=== PATIENT | male | born 1950 | race Asian ===

== ENCOUNTER 2023-08-01 03:25 | Inpatient (IN) | payer MEDICARE ==
[~2023-08-01] VITALS: Ht 157.5 cm; Wt 69.7 kg
[2023-08-01] MEDS ORDERED: ALBUTEROL SULFATE 2.5 MG/0.5 ML 5 ML NEB SOLUTION NEB ONE ×2 (03:28→03:45)
[2023-08-01] MEDS ORDERED: IPRATROPIUM BROMIDE 0.5 MG/2.5 ML NEB SOLUTION NEB ONE ×2 (03:28→03:45)
[2023-08-01] MEDS ORDERED: 0.9% SODIUM CHLORIDE 15 ML NEB SOLUTION NEB ONE (03:30)
[2023-08-01] MEDS ORDERED: ALBUTEROL SULFATE 2.5 MG/0.5 ML NEB SOLUTION NEB ONE (03:32)
[2023-08-01 03:45] VITALS: PULSE 101; RESP 26; O2SAT 98
[2023-08-01] MEDS ORDERED: MethylPREDNISolone SOD SUCC 125 MG/2 ML VIAL IVP ONE (03:45)
[2023-08-01 03:50] VITALS: PULSE 101; RESP 26; O2SAT 98
[2023-08-01 04:10] LABS: ABG BASE EXCESS -1.2 mmol/L (-2.0-3.0); ABG CARBOXYHEMOGLOBIN 0.4 % (0.0-1.5); ABG HCO3 23.5 mmol/L (22.0-26.0); ABG METHEMOGLOBIN 0.3 % (0.0-1.5); ABG OXYGEN CONTENT 21.5 mL/dL (15.0-23.0); ABG OXYGEN SATURATION 98.9 % (95.0-98.0); ABG OXYHEMOGLOBIN 98.2 % (94.0-100.0); ABG PCO2 41 mmHg (35-45); ABG PH 7.387 (7.35-7.450); ABG TOTAL HEMOGLOBIN 15.4 G/dL (12.0-18.0); PO2, ARTERIAL BG 150.3 mmHg (75.0-83.0); SOURCE, BLOOD GAS ARTERIAL; TEMPERATURE, FAHRENHEIT, BG 97.6 FAHREN (96.0-98.6)
[2023-08-01 04:11] LABS: ALLEN TEST, BLOOD GAS POS; O2 DEVICE,BLOOD GAS AEROSOL (ROOM AIR); SITE, BLOOD GAS RT BRACHIAL
[2023-08-01 04:21] LABS: BASOPHILS % (AUTO) 0.6 % (0.0-2.0); EOSINOPHILS % (AUTO) 2.1 % (1.0-6.0); HEMATOCRIT 45.5 % (41-53); HEMOGLOBIN 14.9 g/dL (13.5-17.5); LYMPHOCYTES # (AUTO) 2.5 K/uL (1.0-4.8); LYMPHOCYTES % (AUTO) 21.5 % (22.0-44.0); MEAN CORPUSCULAR HGB CONC 32.7 G/dL (31.0-37.0); MEAN CORPUSCULAR VOLUME 92 fL (80-100); MONOCYTES % (AUTO) 8.8 % (2.0-9.0); NEUTROPHILS # (AUTO) 7.9 K/uL (1.8-7.7); PLATELET COUNT (AUTO) 115 K/uL (150-450); RED BLOOD CELL COUNT(AUTO) 4.96 MIL/uL (4.50-5.90); RED CELL DISTRIBUTION WIDTH 13.8 % (11.5-14.5); WHITE BLOOD COUNT (AUTO) 11.8 K/uL (4.5-11.0)
[2023-08-01 04:33] LABS: D-DIMER 0.19 mg/L FEU (0.00-0.50); INR 1.1 (0.9-1.1); PROTHROMBIN TIME 11.3 SEC (9.4-11.6)
[2023-08-01 04:35] LABS: LACTIC ACID 0.9 mmol/L (0.4-2.0); TROPONIN I-HIGH SENSITIVITY 9 ng/L (<76)
[2023-08-01 04:40] LABS: ANION GAP 6 mmol/L (8-16); CALCIUM, TOTAL 8.8 mg/dL (8.8-10.5); CARBON DIOXIDE 32 mmol/L (22-29); CHLORIDE 99 mmol/L (98-107); CREATININE 1.02 mg/dL (0.60-1.30); GLOMERULAR FILTR. RATE CALC > 60 mL/min (>60); GLUCOSE,RANDOM 125 mg/dL (70-110); POTASSIUM 3.9 mmol/L (3.5-5.1); SODIUM SERUM 137 mmol/L (136-145); UREA NITROGEN, BLOOD 10 mg/dL (7-18)
[2023-08-01 04:42] LABS: B-TYPE NATRIURETIC PEPTIDE 106 pg/mL (0-100)
[2023-08-01 04:47] LABS: ALANINE AMINOTRANSFERASE 24 U/L (12-78); ALBUMIN 3.9 g/dL (3.4-5.0); ALKALINE PHOSPHATASE 65 U/L (46-116); ASPARTATE AMINOTRANSFERASE 26 U/L (15-37); BILIRUBIN,TOTAL 0.9 mg/dL (0.1-1.0); CREATINE KINASE, TOTAL ONLY 157 U/L (39-308); TOTAL PROTEIN, SERUM 7.7 g/dL (6.4-8.2)
[2023-08-01 04:53] LABS: COVID AG,FIA SOURCE NASAL SWAB
[2023-08-01 04:59] VITALS: PULSE 112; RESP 18; O2SAT 100
[2023-08-01 05:14] LABS: INFLUENZA TYPE A NEGATIVE FOR TYPE A (NEGATIVE); INFLUENZA TYPE B NEGATIVE FOR TYPE B (NEGATIVE); SARS-COV2 (COVID) ANTIGEN,FIA Negative (Negative)
[2023-08-01] MEDS ORDERED: ACETAMINOPHEN 325 MG TABLET PO PRN ×2 (07:00→07:15)
[2023-08-01] MEDS ORDERED: ONDANSETRON HCL 4 MG/2 ML VIAL IVP PRN ×2 (07:00→07:15)
[2023-08-01] MEDS ORDERED: IPRATROPIUM BROMIDE 0.5 MG/2.5 ML NEB SOLUTION NEB PRN (07:15)
[2023-08-01] MEDS ORDERED: BISACODYL 10 MG RECTAL RECTAL SUPPOSITORY PR PRN (07:15)
[2023-08-01] MEDS ORDERED: DOCUSATE SODIUM 100 MG CAPSULE PO PRN (07:15)
[2023-08-01] MEDS ORDERED: ALBUTEROL SULFATE 2.5 MG/0.5 ML NEB SOLUTION NEB PRN (07:15)
[2023-08-01] MEDS ORDERED: 0.9% SODIUM CHLORIDE 10 ML SYRINGE IVP PRN (07:15)
[2023-08-01] MEDS ORDERED: HEPARIN SODIUM,PORCINE 5,000 UNITS/ML VIAL IVP PRN ×2 (07:45)
[2023-08-01 08:30] LABS: TROPONIN I-HIGH SENSITIVITY 9 ng/L (<76)
[2023-08-01 08:39] LABS: THYROID STIMULATING HORMONE 0.65 uIU/mL (0.36-3.74)
[2023-08-01] MEDS ORDERED: CARVEDILOL 3.125 MG TABLET PO SCH (09:00)
[2023-08-01] MEDS: HEPARIN SODIUM 25000 UNITS/D5W 250 ML IV PRN (09:01)
[2023-08-01] MEDS: ATORVASTATIN CALCIUM 40 MG TABLET PO SCH (11:01)
[2023-08-01] MEDS: LISINOPRIL 5 MG TABLET PO SCH (11:02)
[2023-08-01] MEDS: CARVEDILOL 3.125 MG TABLET PO SCH ×2 (11:02→21:24)
[2023-08-01 11:03] VITALS: BP 115/78; PULSE 114; RESP 20; TEMP 98.6
[2023-08-01] MEDS ORDERED: INFLUENZA VIRUS VACCINE QVS 2023-24 (6MO+)/PF 60 MCG/0.5 ML SYRINGE IM. ONE (14:15)
[2023-08-01 14:30] VITALS: BP 111/77; PULSE 107; RESP 20; TEMP 97.9
[2023-08-01 15:44] LABS: APPEARANCE,URINE CLEAR (CLEAR); BILIRUBIN,URINE NEGATIVE (NEGATIVE); COLOR,URINE LIGHT YELLOW (YELLOW); GLUCOSE, URINE (UA) >=1000 mg/dL (NEGATIVE); KETONES,URINE NEGATIVE (NEGATIVE); LEUKOCYTE ESTERASE ,URINE NEGATIVE (NEGATIVE); NITRATE,URINE NEGATIVE (NEGATIVE); OCCULT BLOOD,URINE TRACE (NEGATIVE); PH,URINE 6.5 (5.0-8.0); PROTEIN,URINE 30-70 mg/dL (NEGATIVE); SPECIFIC GRAVITIY, URINE 1.012 (1.003-1.030); UROBILINOGEN,URINE <=1.0 mg/dL (<=1.0)
[2023-08-01 15:58] LABS: BACTERIA,URINE None Seen /HPF (None Seen); RBC,URINE 0-2 /HPF (0-2); WBC,URINE 0-2 /HPF (0-5)
[2023-08-01 20:10] VITALS: BP 109/74; PULSE 122; RESP 20; TEMP 98.9
[2023-08-01] MEDS: BENZONATATE 100 MG CAPSULE PO SCH (21:24)
[2023-08-02 00:22] VITALS: BP 118/77; PULSE 88; RESP 20; TEMP 98.9
[2023-08-02 05:05] VITALS: BP 125/48; PULSE 78; RESP 20; TEMP 98
[2023-08-02] MEDS: LEVOTHYROXINE SODIUM 88 MCG TABLET PO SCH (06:30)
[2023-08-02 07:06] LABS: BASOPHILS % (AUTO) 0.3 % (0.0-2.0); EOSINOPHILS % (AUTO) 0.2 % (1.0-6.0); HEMATOCRIT 44.2 % (41-53); HEMOGLOBIN 14.7 g/dL (13.5-17.5); LYMPHOCYTES # (AUTO) 1.4 K/uL (1.0-4.8); LYMPHOCYTES % (AUTO) 10.6 % (22.0-44.0); MEAN CORPUSCULAR HEMOGLOBIN 30.3 pg (26.0-34.0); MEAN CORPUSCULAR HGB CONC 33.3 G/dL (31.0-37.0); MEAN CORPUSCULAR VOLUME 91 fL (80-100); MONOCYTES # (AUTO) 1.2 K/uL (0.1-1.0); MONOCYTES % (AUTO) 9.1 % (2.0-9.0); NEUTROPHILS # (AUTO) 10.3 K/uL (1.8-7.7); NEUTROPHILS % (AUTO) 79.8 % (40.0-70.0); PLATELET COUNT (AUTO) 133 K/uL (150-450); RED BLOOD CELL COUNT(AUTO) 4.85 MIL/uL (4.50-5.90); RED CELL DISTRIBUTION WIDTH 13.5 % (11.5-14.5); WHITE BLOOD COUNT (AUTO) 12.9 K/uL (4.5-11.0)
[2023-08-02 07:25] LABS: TROPONIN I-HIGH SENSITIVITY 11 ng/L (<76)
[2023-08-02 07:26] VITALS: BP 118/91; PULSE 87; RESP 18; TEMP 98.4
[2023-08-02 07:26] LABS: ALANINE AMINOTRANSFERASE 24 U/L (12-78); ALBUMIN 3.6 g/dL (3.4-5.0); ALKALINE PHOSPHATASE 59 U/L (46-116); ANION GAP 6 mmol/L (8-16); ASPARTATE AMINOTRANSFERASE 24 U/L (15-37); BILIRUBIN,TOTAL 0.8 mg/dL (0.1-1.0); CALCIUM, TOTAL 9.1 mg/dL (8.8-10.5); CARBON DIOXIDE 30 mmol/L (22-29); CHLORIDE 101 mmol/L (98-107); CREATININE 0.87 mg/dL (0.60-1.30); GLOMERULAR FILTR. RATE CALC > 60 mL/min (>60); GLUCOSE,RANDOM 107 mg/dL (70-110); SODIUM SERUM 137 mmol/L (136-145); TOTAL PROTEIN, SERUM 7.6 g/dL (6.4-8.2); UREA NITROGEN, BLOOD 15 mg/dL (7-18)
[2023-08-02] MEDS: LISINOPRIL 5 MG TABLET PO SCH (09:58)
[2023-08-02] MEDS: ATORVASTATIN CALCIUM 40 MG TABLET PO SCH (09:58)
[2023-08-02] MEDS: CARVEDILOL 3.125 MG TABLET PO SCH ×2 (09:58→20:57)
[2023-08-02] MEDS: BENZONATATE 100 MG CAPSULE PO SCH ×3 (09:58→20:58)
[2023-08-02 11:45] VITALS: BP 111/80; PULSE 91; RESP 18; TEMP 97.9
[2023-08-02] MEDS: HEPARIN SODIUM 25000 UNITS/D5W 250 ML IV PRN (15:28)
[2023-08-02 15:52] VITALS: BP 125/86; PULSE 87; RESP 18; TEMP 98.6
[2023-08-02 20:00] VITALS: BP 152/92; PULSE 98; RESP 17; TEMP 98
[2023-08-03] VITALS: BP 135/93; PULSE 96; RESP 19; TEMP 98.4
[2023-08-03 04:00] VITALS: BP 121/90; PULSE 80; RESP 19; TEMP 98.3
[2023-08-03] MEDS: LEVOTHYROXINE SODIUM 88 MCG TABLET PO SCH (05:36)
[2023-08-03 07:37] VITALS: BP 127/88; PULSE 68; RESP 18; TEMP 97.9
[2023-08-03] MEDS ORDERED: APIXABAN 5 MG TABLET PO SCH (09:00)
[2023-08-03] MEDS: ATORVASTATIN CALCIUM 40 MG TABLET PO SCH (09:58)
[2023-08-03] MEDS: BENZONATATE 100 MG CAPSULE PO SCH (09:58)
[2023-08-03] MEDS: CARVEDILOL 3.125 MG TABLET PO SCH (09:58)
[2023-08-03] MEDS: LISINOPRIL 5 MG TABLET PO SCH (09:58)
[2023-08-03 11:30] VITALS: BP 126/89; PULSE 116; RESP 18; TEMP 98
[2023-08-03] MEDS ORDERED: IPRATROPIUM BROMIDE 0.5 MG/2.5 ML NEB SOLUTION NEB ONE (12:30)
[2023-08-03] MEDS ORDERED: GuaiFENesin SR 600 MG ER TABLET PO ONE (12:30)
[2023-08-03] MEDS ORDERED: ALBUTEROL SULFATE 2.5 MG/0.5 ML NEB SOLUTION NEB ONE (12:30)
[2023-08-03] MEDS ORDERED: ATOR40TA28 PO (13:15)
[2023-08-03] MEDS ORDERED: CARV6 PO (13:15)
[2023-08-03] MEDS ORDERED: GuaiFENesin/CODEINE [SUGAR FREE] 200-20MG/10 ML SYRUP UDCUP PO ONE (13:15)
[2023-08-03] MEDS ORDERED: APIX5TAB PO (13:15)
[2023-08-03] MEDS ORDERED: LEVO88TA4 PO (13:16)
[2023-08-03] MEDS ORDERED: LISI-892 PO (13:16)
[2023-08-03] MEDS ORDERED: DOXY-354 PO (13:18)
[2023-08-03] MEDS ORDERED: GUAIF600 PO (13:18)
[2023-08-03] MEDS ORDERED: IPRA4AER IH (13:20)
[2023-08-03 19:06] LABS: MYCOPLASMA AB IGG 118 U/mL (0-99); MYCOPLASMA AB IGM <770 U/mL (0-769)
[2023-08-03] MEDS ORDERED: CARVEDILOL 3.125 MG TABLET PO SCH (21:00)
[2023-08-04 17:06] LABS: LEGIONELLA PNEUMO AG URINE Negative (Negative); S PNEUMO SOURCE Urine; STREP PNEUMONIAE AG URINE Negative (Negative)
== END 2023-08-03 13:40 | disposition home or self-care (01) | DRG 189 ==
LOC: EMS 03:26 → 5S 08:27
PROVIDERS: ADMIT Internal Medicine; ATTEND Internal Medicine
DX: J96.01 Acute respiratory failure with hypoxia (principal); I48.19 Other persistent atrial fibrillation; R91.1 Solitary pulmonary nodule; Z86.11 Personal history of tuberculosis; Z79.01 Long term (current) use of anticoagulants; J47.9 Bronchiectasis, uncomplicated; E78.5 Hyperlipidemia, unspecified; E03.9 Hypothyroidism, unspecified; I25.10 Atherosclerotic heart disease of native coronary artery without angina pectoris; Z87.891 Personal history of nicotine dependence; I10 Essential (primary) hypertension
CPT/HCPCS: 36600; 71045; 71250; 80053; 81001; 81003; 82550; 82805; 83605; 83735; 83880; 84100; 84145; 84443; 84484; 85025; 85379; 85610; 85730; 86738; 87040; 87449; 87804; 87899; 90686; 93005; 93306; 94640; 94644; 99291; J1644; J2930; Q9967; 36415-L1; 36415-TC; G0008